=== PATIENT | female | born 1995 | race Two or more races ===

== ENCOUNTER 2020-06-24 15:06 | Observation (INO) | payer SELFPAY ==
[2020-06-24] MEDS ORDERED: IV RINGERS,LACTATED 1000ML 1,000 ML IV SCH (17:30)
== END 2020-06-24 16:30 | disposition home or self-care (01) ==
LOC: 3 SO LND 15:06
PROVIDERS: ADMIT Obstetrics & Gynecology; ATTEND Obstetrics & Gynecology
DX: O26.852 Spotting complicating pregnancy, second trimester (principal); O26.892 Other specified pregnancy related conditions, second trimester; R10.32 Left lower quadrant pain; Z3A.22 22 weeks gestation of pregnancy
CPT/HCPCS: 59025; G0378; G0379